=== PATIENT | female | born 1940 | race Native Hawaiian/Other Pacific Islander ===

== ENCOUNTER 2016-07-21 11:50 | Inpatient (IN) | payer OTHER ==
[2016-07-21] VITALS (18 sets, daily range): BP systolic 103–163; BP diastolic 56–100; TEMP 98–101.3; Ht 177.8 cm; Wt 68.3 kg
[~2016-07-21] VITALS: Ht 177.8 cm; Wt 68.3 kg
[~2016-07-21 11:50] MED LIST: AMLO2.5T PO; CYPROHEPTAD4 MG PO; DIVA125C PO; ENSURE PO; GEODON60 MG PO; LEXAPRO20 MG PO; POT CHLORIDE 10% PO; SENOKOT S1 TAB PO; TRAZ50TA36 PO; VITAMIN D32000 UNIT PO; ZIPR20CA PO; ZIPR20IN IM
[2016-07-21] MEDS ORDERED: PANTPAK PO (17:24)
[2016-07-21] MEDS ORDERED: FIBER LAXATIV0.52 GM PO (17:27)
[2016-07-21] MEDS ORDERED: ABILIFY20 MG PO (17:30)
[2016-07-21] MEDS ORDERED: BENZ1TAB43 PO (17:34)
[2016-07-22] VITALS (34 sets, daily range): BP systolic 97–177; BP diastolic 58–108; TEMP 97.2–99
[2016-07-22 08:00] LABS: POTASSIUM 2.9 mmol/L (3.6-5.2); SODIUM 144 mmol/L (136-145)
[2016-07-22 08:19] LABS: PLATELET COUNT 448 K/uL (152-353)
[2016-07-22 08:42] LABS: PARTIAL THROMBOPLASTIN TIME 27.2 SECONDS (24.5-33.6)
[2016-07-23] VITALS (13 sets, daily range): BP systolic 110–160; BP diastolic 63–94; TEMP 97.7–99.1
[2016-07-23 05:35] LABS: PLATELET COUNT 414 K/uL (152-353)
[2016-07-23 05:59] LABS: POTASSIUM 3.1 mmol/L (3.6-5.2); SODIUM 144 mmol/L (136-145)
[2016-07-24] VITALS (22 sets, daily range): BP systolic 112–171; BP diastolic 50–78; TEMP 98.2–98.9
[2016-07-24 07:08] LABS: POTASSIUM 3.3 mmol/L (3.6-5.2); SODIUM 140 mmol/L (136-145)
[2016-07-24 07:10] LABS: PLATELET COUNT 420 K/uL (152-353)
[2016-07-25] VITALS (18 sets, daily range): BP systolic 97–144; BP diastolic 41–91; TEMP 97–99.4
[2016-07-25 06:35] LABS: POTASSIUM 3.2 mmol/L (3.6-5.2); SODIUM 141 mmol/L (136-145)
[2016-07-25 06:44] LABS: PLATELET COUNT 470 K/uL (152-353)
== END 2016-07-25 18:05 | disposition other institution (70) | DRG 871 ==
LOC: ICU 11:50
PROVIDERS: ADMIT Internal Medicine
DX: A41.89 Other specified sepsis (principal); J18.8 Other pneumonia, unspecified organism; N39.0 Urinary tract infection, site not specified; Y95 Nosocomial condition; E83.42 Hypomagnesemia; R94.5 Abnormal results of liver function studies; I48.91 Unspecified atrial fibrillation; G30.8 Other Alzheimer's disease; F02.80 Dementia in other diseases classified elsewhere, unspecified severity, without behavioral disturbance, psychotic disturbance, mood disturbance, and anxiety; B96.20 Unspecified Escherichia coli [E. coli] as the cause of diseases classified elsewhere
CPT/HCPCS: 36415; 36600; 51702; 80053; 80202; 81000; 82550; 82553; 82805; 83690; 83735; 83880; 84484; 85027; 85610; 85730; 87070; 87077; 87086; 87088; 87186; 87205; 93005; 94640; 94664; 94760; 96372; J0515; J1200; J1630; J1642; J1644; J1940; J1956; J3475; J3480; J3486; J3490; Q9963